=== PATIENT | female | born 1970 | race Caucasian/White ===

== ENCOUNTER → 2020-11-12 14:29 | Outpatient (BNVA) | payer SELFPAY | PROVIDERS: Family Provider Physician Assistant Medical; Visit Provider Nurse Practitioner | DX: J02.9 Acute pharyngitis, unspecified (principal); B08.4 Enteroviral vesicular stomatitis with exanthem | CPT/HCPCS: 87071; 87880 ==

== ENCOUNTER → 2023-06-20 09:35 | Outpatient (BNVA) | payer MEDICAID, SELFPAY | PROVIDERS: Family Provider Physician Assistant Medical; PCP Family Medicine; Visit Provider Podiatrist Foot & Ankle Surgery | DX: G57.61 Lesion of plantar nerve, right lower limb | CPT/HCPCS: 73630 ==

== ENCOUNTER 2023-07-23 11:08 | Outpatient (CLI) | payer MEDICAID, SELFPAY ==
--- NOTE | 2023-07-23 11:45 | MR_ITS ---
WS: [id number] EXAMINATION: MR foot RT wo con* [id number] ORDER DATE: 07/23/2023 12:15 PM COMPARISON: None. HISTORY: Martinez's Neuroma CONTRAST: None. TECHNIQUE: Sagittal T1, sagittal STIR, coronal PD, coronal T2, axial T1, axial T2, and axial PD imagi ng with fat saturation technique. FINDINGS: Palpable marker overlying the dorsal foot between the third and fourth metatarsal heads. Ti ny suspected Martinez's neuroma in the area of palpable concern between the third and fourth metatarsal heads. Small amount of edema in this location. Suspected Martinez's neuroma measures 4 mm. Normal bone marrow signal. No acute fractures. Normal metatarsals. Normal MTP joints. Phalanges appe ar normal. Normal a tarsal bones. Normal TMT joints. IMPRESSION: Tiny 4 mm suspected Martinez's neuroma in the area of palpable concern between the third and fourth met atarsal heads
== END 2023-07-23 11:09 | disposition home or self-care (01) ==
LOC: RAD 11:08
PROVIDERS: Family Provider Physician Assistant Medical; PCP Family Medicine; Visit Provider Podiatrist Foot & Ankle Surgery
DX: G57.61 Lesion of plantar nerve, right lower limb (principal)
CPT/HCPCS: 73718

== ENCOUNTER 2023-09-03 05:49 | Day surgery (SDC) | payer MEDICAID, SELFPAY ==
[2023-09-03 06:07] VITALS: BP 140/104; PULSE 88; RESP 17; TEMP 36.3; O2SAT 98; BMI 30.9
[2023-09-03] MEDS: sodium chloride 0.9% 1,000 ML 30 ML IV (06:28)
[2023-09-03] MEDS: gabapentin 300 mg Capsule PO (06:29)
[2023-09-03] MEDS: CELEcoxib 200 mg Capsule 400 MG PO (06:29)
--- NOTE | 2023-09-03 06:45 | P.HPUD_ITS ---
Surgery/Procedure H&P Update DATE OF PROCEDURE: September 03, 2023 DATE H&P PERFORMED: 08/08/23 H&P UPDATE INFORMATION: I have reviewed H&P completed within last 30 days, I have examined patient prior to procedure, No changes to prior documentation and H&P is in [facility] EMR on date indicated PREOP DIAGNOSIS: Martinez's neuroma right foot PLANNED PROCEDURE: Operation Date: 09/03/23 07:00 Proposed Procedures p Excision Martinez's Neuroma(Right) - Andrew Gonzalez DPM
[2023-09-03] MEDS: ceFAZolin 2,000 MG in sodium chloride 0.9% (plus) 50 ML 100 MG IV (06:58)
[2023-09-03] MEDS: lidocaine 1% INJ 10 mL (per mL) 20 ML XX (07:19)
[2023-09-03] MEDS: BUPivacaine 0.5% INJ 30 mL XX (07:20)
[2023-09-03 07:31] VITALS: BP 102/80; PULSE 85; RESP 16; TEMP 36.3; O2SAT 97
--- NOTE | 2023-09-03 07:36 | ANES.PREANE2 ---
Pre-Anesthetic Assessment Height/Weight: Height 1.63 m Weight 81.647 kg Temp Pulse Resp BP Pulse Ox O2 Del Method 97.4 F L 85 16 102/80 97 Room Air 09/03/23 07:31 09/03/23 07:31 09/03/23 07:31 09/03/23 07:31 09/03/23 07:31 09/03/23 07:31 Preop Diagnosis: Martinez's neuroma right foot Operation Date: 09/03/23 07:00 Proposed Procedures p Excision Martinez's Neuroma(Right) - Andrew Gonzalez DPM Familial anesthetic complications: none Was Beta Jacky taken within 24 hours: N/A Was Clonidine taken within 24 hours: N/A Last intake: Intake Last Liquid Date 09/02/23 Last Liquid Time 19:00 Last Solid Date 09/02/23 Last Solid Time 19:00 Social Tobacco and No alcohol Exam alert, oriented x 3 and regular rate & rhythm Airway Submandibular: within normal limits Cervical ROM: within normal limits Mallampati: Class II Dentition: full Pulmonary Chronic Obstructive Pulmonary Disease GI Gastroesophageal Reflux Disease Metabolic Morbid Obesity Neuropsych Anxiety and Depression Anesthetic Plan ASA status: 2 Anesthesia: MAC Medications/Allergies Home Medications Medication Instructions Recorded Confirmed Last Taken Type cholecalciferol (vitamin D3) 1,250 50,000 unit PO DAILY 09/02/23 09/02/23 08/28/23 History mcg (50,000 unit) capsule famotidine 40 mg tablet 40 mg PO DAILY 09/02/23 09/03/23 09/03/23 05:00 History tramadol 50 mg tablet 50 mg PO Q6H PRN pain #20 tabs 09/03/23 Unknown Rx Allergies Allergy/AdvReac Type Severity Reaction Status Date / Time bupropion [From Wellbutrin] Allergy ALGY-Rash Verified 09/03/23 06:04 hydromorphone [From Dilaudid] Allergy ADR-Drowsy Verified 09/02/23 12:36 nalbuphine [From Nubain] Allergy Unknown Verified 09/02/23 12:36 nitrofurantoin Allergy ALGY-Rash Verified 08/08/23 09:09 [From Macrobid] prochlorperazine Allergy ADR-Anxiety Verified 08/08/23 09:09 [From Compazine] Current Medications Generic Name Dose Route Start Last Admin Trade Name Freq PRN Reason Stop Dose Admin Sodium Chloride 1,000 mls @ 30 mls/hr 09/03/23 06:00 09/03/23 06:28 Sodium Chloride 0.9% IV 09/04/23 05:59 30 mls/hr .Q24H YUE Administration PFSH Anesthesia Social History Smoking and tobacco/nicotine status: current every day tobacco/nicotine user Data Anesthesia Cardiac Studies: No Data to Display
--- NOTE | 2023-09-03 07:38 | P.BOP_ITS ---
Date of procedure: 09/03/2023 Surgeon name: Wesley CruzPIrene Computer Network Specialist(s) name(s): Alejandro Procedure(s) performed: Right foot third interspace neuroma excision Description of findings: Neuroma removed from right foot third interspace Estimated blood loss: 5 cc Tourniquet time: 15 minutes Specimen(s) removed: Neuroma right foot third interspace Post-operative diagnosis: Martinez's neuroma right foot
--- NOTE | 2023-09-03 07:39 | PM.OP ---
Operative Report Date of procedure: September 03, 2023 Pre-op diagnosis: Right foot third interspace neuroma Post-op diagnosis: Same Post-op findings: Neuroma right foot third interspace Procedure done: Excision neuroma right foot third interspace CPT 27677 Pathology: Soft tissue mass from right foot third interspace resembling neuroma was sent to pathology Surgeon: Andrew Gonzalez DPM Liquefaction Plant Operator: Alejandro Estimated blood loss: 5 cc 15 minutes Complications: None Procedure: Patient is a 52-year-old female that has a history of right foot third interspace neuroma. The patient has had the aforementioned chief complaint for some time. Conservative treatment measures have been attempted and the patient has opted for surgical intervention at this time. A lengthy discussion regarding the procedure, including risks and complications has been had with the patient and is noted in the recent clinic note. Written and verbal consent have been obtained. All patient questions have been answered to the patient?s satisfaction. No written or verbal guarantees have been given or implied. The patient has been NPO since midnight. The history has been reviewed and the history and physical is current. The signed consent was confirmed and placed in the patient chart. Patient imaging has been reviewed and is consistent with the diagnosis. Under mild sedation, the patient was brought into the operating room and placed on the table in the supine position. IV antibiotics were given by the anesthesia team as preoperative surgical prophylaxis. IV sedation was then performed by the anesthesiateam. A local field block was performed using 0.5% Marcaine plain. A pneumatic tourniquet was then placed about the right ankle. The operative extremity was then prepped and draped in the usual fashion. The extremity was then elevated and exsanguinated before the tourniquet was inflated to 250 mmHg. After inflation, the following procedure was then performed. Attention was directed to the right foot where a 4 cm incision was made over the right foot third intermetatarsal space. Blunt dissection was carried down through subcutaneous and superficial fascia using a hemostat. Dissection was carried out to expose the soft tissue mass of the right foot third intermetatarsal space consistent with neuroma. This was isolated and was transected proximally using tenotomy scissors. It was then dissected distally into its respective medial and lateral branches before being resected and passed from the operative field. It was noted to be approximately a centimeter in length and 0.2 cm in width, yellow and glistening no evidence of malignancies. No further soft tissue mass remained in the third intermetatarsal space. Site was irrigated with copious amounts of sterile saline before attention was directed to closure. Skin was closed with 4-0 nylon in horizontal mattress fashion. The tourniquet was let down and good hyperemic response was noted to all digits of the right foot. Incision was dressed with Xeroform, 4 x 4 gauze, Kerlix, Stefano. The patient tolerated the procedure and anesthesia well and without complication. The patient was transported from the operating room to the recovery room with vital signs stable and vascular status intact to all digits of the right foot. The patient was given both written and verbal instructions to remain weightbearing as tolerated in postop shoe to the operative extremity, to keep dressings/splint clean, dry and intact and to take pain medication as directed. The patient will follow-up in the outpatient setting at their scheduled appointment. The patient was discharged with my personal number and was instructed to call if any questions or issues should arise. They were discharged home once anesthesia criteria was met.
[2023-09-03 07:40] VITALS: BP 122/85; PULSE 83; RESP 16; O2SAT 96
[2023-09-03 07:45] VITALS: BP 118/84; PULSE 79; RESP 16; O2SAT 96
[2023-09-03 07:52] VITALS: BP 128/98; PULSE 92; RESP 17; TEMP 36.3; O2SAT 96
[2023-09-03] MEDS: cetylpyridinium Lozenge 1 EACH MUCOUS MEM (08:28)
--- NOTE | 2023-09-03 13:38 | ANE.PACU2 ---
Inpatient post-anesthesia follow up: Airway intact: Yes Vital signs: Temperature 97.4 F Pulse Rate 92 Respiratory Rate 17 Blood Pressure 128/98 Pulse Oximetry 96 Oxygen Delivery Me thod Room Air Oxygen Flow Rate Fraction of Inspir ed Oxygen Hydration adequate: Yes Nausea and vomiting: No Pain level: 1 Mental status: Baseline
== END 2023-09-03 09:04 | disposition home or self-care (01) ==
PROVIDERS: PCP Family Medicine; Visit Provider Podiatrist Foot & Ankle Surgery
PROC: (CPT 28080; principal; 2023-09-03 07:00)
DX: G57.61 Lesion of plantar nerve, right lower limb (principal); J44.9 Chronic obstructive pulmonary disease, unspecified; K21.9 Gastro-esophageal reflux disease without esophagitis; E66.01 Morbid (severe) obesity due to excess calories; Z68.30 Body mass index [BMI] 30.0-30.9, adult; F17.200 Nicotine dependence, unspecified, uncomplicated
CPT/HCPCS: 28080; 88304; J0690; J2250; J2704; J3010; J3490; J7030

== ENCOUNTER 2023-11-28 16:23 | Observation (INO) | payer MEDICAID, SELFPAY ==
--- NOTE | 2023-11-28 16:27 | XRR_ITS ---
PROCEDURE INFORMATION: Exam: XR Right Foot Exam date and time: 11/28/2023 4:58 PM Age: 53 years old Clinical indication: Pain; Right; Patient HX: Prior surgery on foot; Blood vessel was burst and has been having issues since then. Surgwery >6months TECHNIQUE: Imaging protocol: Radiologic exam of the right foot. Views: 1 or 2 views. COMPARISON: MR foot RT wo con* [id number] 07/23/2023 12:26 PM FINDINGS: Bones/joints: Normal. Soft tissues: Normal. XR/XR foot RT 2V [id number] IMPRESSION: No acute findings.
[2023-11-28 16:32] VITALS: BP 128/82; PULSE 93; RESP 16; TEMP 36.7; O2SAT 97; BMI 31.7
[2023-11-28 17:41] LABS: Basophils # 0.1 10^3/uL (0.0-0.1); Basophils % 0.5 %; Eosinophils # 0.2 10^3/uL (0.0-0.8); Eosinophils % 1.2 %; Hematocrit 41.5 % (36-47); Lymphocytes # 5.2 10^3/uL (0.8-4.8); Lymphocytes % 37.8 %; Mean Corpuscular HGB Conc 32.5 g/dL (30-55); Mean Corpuscular Hemoglobin 28.8 pg (27-33); Mean Corpuscular Volume 88.7 fl (85-98); Mean Platelet Volume 8.9 fL (7.4-10.4); Monocytes # 0.8 10^3/uL (0.2-0.9); Monocytes % 6.1 %; Neutrophils # 7.37 10^3/uL (1.8-7.7); Neutrophils % 54.2 %; Nucleated Red Blood Cells % 0 %; Platelet Count 310 10^3/cmm (157-399); Red Blood Count 4.68 10^6/uL (3.85-5.65); Red Cell Distribution Width 13.2 % (12.1-15.1); White Blood Count 13.61 10^3/uL (3.29-11.43)
[2023-11-28 18:00] LABS: Lactic Sepsis W/Reflex 0.8 mmol/L (0.5-2.2)
[2023-11-28 18:01] LABS: Blood Urea Nitrogen 12 mg/dL (6-20); Calcium 8.9 mg/dL (8.5-10.5); Carbon Dioxide 24 mmol/L (22-29); Chloride 104 mmol/L (98-107); Creatinine Clr Calc Pharmacy 97.4056; Glomerular Filtration Rate 87.5 mL/min (90-130); Glucose 109 mg/dL (65-115); Osmolality Calculated 290 mOsm/kg (285-295); Sodium 140 mmol/L (136-145)
[2023-11-28 18:04] VITALS: PULSE 82; RESP 18; O2SAT 98
[2023-11-28 18:08] LABS: Procalcitonin 0.03 ng/mL (0-0.5)
[2023-11-28] MEDS: sodium chloride 0.9% 1,000 ML 999 ML IV (18:14)
[2023-11-28] MEDS: ciprofloxacin 400 MG/200 ML PREMIX 200 MG IV (18:14)
[2023-11-28] MEDS: ondansetron 2 mg/ML SDV 2 mL 4 MG IVP (18:16)
[2023-11-28] MEDS: morphine 4 mg/mL SDV 1 mL IVP ×2 (18:16→22:43)
[2023-11-28 22:43] VITALS: RESP 18
[2023-11-28] MEDS: famotidine 20 mg/2 mL INJ IVP (22:43)
--- NOTE | 2023-11-28 23:47 | CTR_ITS ---
PROCEDURE INFORMATION: Exam: CT Right Lower Extremity With Contrast, Foot Exam date and time: 11/29/2023 1:54 AM Age: 53 years old Clinical indication: Pain; Swelling, leg or foot; Right; Prior surgery; Surgery date: 6+ months; Surgery type: Patel's neuroma excision. Multiple debridements. Patient HX: Diffuse swelling and redness to fore and midfoot. History of patel's neuroma. ; Additional info: Swelling, erythema, history of debridment for patel neuroma TECHNIQUE: Imaging protocol: CT of the right lower extremity with intravenous contrast was performed. Exam focused on the foot. Radiation optimization: All CT scans at this facility use at least one of these dose optimization techniques: automated exposure control; mA and/or kV adjustment per patient size (includes targeted exams where dose is matched to clinical indication); or iterative reconstruction. Contrast material: OMNI 350; Contrast volume: 100 ml; Contrast route: INTRAVENOUS (IV); COMPARISON: MR foot RT wo con* [id number] 07/23/2023 12:26 PM RADIATION DOSE METRICS: Total DLP (mGy-cm): 373.99 FINDINGS: Bones/joints: No acute findings. Soft tissues: Diffuse soft tissue swelling and edema of the midfoot without focal fluid collection. Subcutaneous reticulation and skin thickening about the plantar aspect of the metatarsal head, no focal fluid collection. CT/CT foot RT w con [id number] IMPRESSION: Midfoot and plantar forefoot soft tissue swelling and edema without focal fluid collection. No erosive changes of the bones to suggest aggressive osseous pathology.
--- NOTE | 2023-11-28 23:50 | P.HP_ITS ---
Providers/Chief Complaint 2 Primary Care Provider: Gomez Jacobson Chief Complaint: right foot pain, swollen, redness History of Present Illness Yazmin Rubio is a 53 year old female with history of Martinez neuroma excision August 2013, with subsequent dehiscence of wound of right foot, status post excisional wound debridement, last debridement was 11/26/2023, she presents to [facility] as she has been developing right foot swelling erythema, warmth, tenderness is extending from surgical site, no fevers, no chills, no cough, no history of diabetes Review of Systems 2 Const: Denies: fever(s) or chills Medications/Allergies Home Medications Medication Instructions Recorded Confirmed Last Taken Type cholecalciferol (vitamin D3) 1,250 50,000 unit PO DAILY 09/02/23 11/26/23 08/28/23 History mcg (50,000 unit) capsule famotidine 40 mg tablet 40 mg PO DAILY 09/02/23 11/26/23 09/03/23 05:00 History tramadol 50 mg tablet 50 mg PO Q6H PRN pain #20 tabs 09/03/23 11/26/23 Unknown Rx cephalexin 500 mg capsule 500 mg PO TID #21 caps 09/17/23 11/26/23 Unknown Rx Allergies Allergy/AdvReac Type Severity Reaction Status Date / Time bupropion [From Wellbutrin] Allergy ALGY-Rash Verified 11/26/23 14:09 hydromorphone [From Dilaudid] Allergy ADR-Drowsy Verified 11/26/23 14:09 nalbuphine [From Nubain] Allergy Unknown Verified 11/26/23 14:09 nitrofurantoin Allergy ALGY-Rash Verified 11/26/23 14:09 [From Macrobid] prochlorperazine Allergy ADR-Anxiety Verified 11/26/23 14:09 [From Compazine] PFSH Acute 2 PFSH: Medical History (Updated 11/28/23 @ 23:55 by Fazal Rendon MD) Dehiscence of wound of skin Surgical History (Updated 11/28/23 @ 23:52 by Fazal Rendon MD) S/P excision of Martinez's neuroma Social History (Updated 11/28/23 @ 23:53 by Fazal Rendon MD) Smoking and tobacco/nicotine status: current every day tobacco/nicotine user Alcohol intake: never Substance/Drug Use: never Vitals/I&O/Wt Last Vital Signs Temp 98.1 F 11/28/23 16:32 Pulse 82 11/28/23 18:04 Resp 18 11/28/23 22:43 BP 128/82 11/28/23 16:32 Pulse Ox 98 11/28/23 18:04 O2 Del Method Room Air 11/28/23 18:04 11/28/23 11/28/23 11/29/23 14:59 22:59 06:59 Intake Total 1200 / 1200 Balance 1200 / 1200 Weight last 48 hrs Weight 83.915 kg Physical Exam 2 Const: COMMON NORMALS: no acute distress and patient oriented x3 HENMT: COMMON NORMALS: normocephalic HEAD & SCALP: normocephalic Neck/C-Spine: COMMON NORMALS: no JVD Resp: COMMON NORMALS: normal respiratory effort, No retractions, No use of accessory muscles and clear to auscultation bilaterally AUSCULTATION: clear to auscultation bilaterally Cardio: COMMON NORMALS: regular rate, regular rhythm, S1 normal heart sound present and S2 normal heart sound present RATE: regular rate RHYTHM: r egular rhythm HEART SOUNDS: S1 normal heart sound present and S2 normal heart sound present GI: COMMON NORMALS: Normal to inspection, nondistended, normoactive bowel sounds present, Soft to palpation and non-tender Extremity: COMMON NORMALS: no calf tenderness and no pedal edema Neuro: COMMON NORMALS: patient oriented x3, CN's II-XII intact bilaterally and moves all extremities Psych: COMMON NORMALS: mental status grossly normal Skin: OTHER: Right foot, erythema, swelling, warmth, tenderness extending from excision site, to the hindfoot, primarily in the dorsal aspect of the foot, pustular drainage from dehiscence site Data 11/28/23 17:32 11/28/23 17:32 Micro: Microbiology 11/28/23 19:18 Blood Culture - Preliminary Blood SPECIMEN COLLECTED 11/28/23 19:15 Blood Culture - Preliminary Blood SPECIMEN COLLECTED A&P Assessment and plan (1) Dehiscence of wound of skin: (2) Surgical site infection: (3) Cellulitis: (4) Martinez's neuroma of right foot: Plan Right foot cellulitis with surgical site infection, wound dehiscence, pustular drainage coming from surgical site plan ? CT of the foot with IV contrast ? IV fluids ? Vancomycin ? Cefepime ? Blood cultures ? Wound culture ? CRP, Pro-Cassius ? Dr. Gonzalez has been consulted through the ER ? N.p.o. midnight ? Possible surgical intervention tomorrow morning ? Full code ? Lovenox for DVT prophylaxis Attestations 2 Medical Necessity Statement*: Patient requires hospitalization, inpatient, greater than 2 midnights, for surgical site infection, cellulitis, right foot Diagnoses Dehiscence of wound of skin T81.30XA Surgical site infection T81.49XA Cellulitis L03.90 Martinez's neuroma of right foot G57.61
[2023-11-28 23:56] LABS: Erythrocyte Sedimentation Rate 21 mm/hr (0-15)
[2023-11-29] VITALS (10 sets, daily range): BP systolic 92–119; BP diastolic 56–77; PULSE 72–90; RESP 16–19; TEMP 36.2–36.7; O2SAT 95–97; BMI 31.7
--- NOTE | 2023-11-29 00:03 | W.ED.WOUNDLC ---
HPI - Wound/Laceration General: Chief Complaint: Wound/Laceration Stated Complaint: right foot pain, swollen, redness Time Seen by Provider: 11/28/23 17:29 Source: patient and family Mode of arrival: ambulatory Limitations: no limitations History of Present Illness: Had debridement done for the third time on the right foot on Friday. Then today suddenly had foot pain and swelling and redness. Some chills no known fever. Severe pain in the foot especially with walking. Had some nerve pain after the procedure that got better on . No nerve pain today. Just aching and soreness all over. Review of Systems General: Reports: 10 or more systems reviewed and unremarkable except in HPI and below PFSH ED PFSH: Medical History Dehiscence of wound of skin Surgical History S/P excision of Martinez's neuroma Social History Smoking and tobacco/nicotine status: current every day tobacco/nicotine user Alcohol intake: never Substance/Drug Use: never Physical Exam Const: COMMON NORMALS: no acute distress, average body habitus, patient oriented x3, healthy appearing, alert and well nourished GENERAL APPEARANCE: well kempt and well developed HENMT: COMMON NORMALS: normocephalic, atraumatic, external ears normal and moist oral mucous membranes HEAD & SCALP: normocephalic and atraumatic EXTERNAL EAR: Yes external ears normal Eye: COMMON NORMALS: Equal, round and reactive pupils present, EOMs intact bilaterally and conjunctivae normal CONJUNCTIVA: Yes conjunctivae normal PUPIL: Yes Equal, round and reactive pupils present Neck/C-Spine: COMMON NORMALS: full ROM, no lymphadenopathy and supple Chest: CHEST: Yes Symmetrical chest wall rise and No Surgical scars present (Chest) Resp: COMMON NORMALS: normal respiratory effort, No retractions, No use of accessory muscles and clear to auscultation bilaterally AUSCULTATION: clear to auscultation bilaterally Cardio: COMMON NORMALS: regular rate, regular rhythm, S1 normal heart sound present, S2 normal heart sound present, No gallops present (Cardio), No clicks present (Cardio), No murmurs present (Cardio) and No rub (Cardio) RATE: regular rate RHYTHM: regular rhythm HEART SOUNDS: S1 normal heart sound present, S2 normal heart sound present and no murmurs PERIPHERAL PULSES: other (Radial pulses 2+ and symmetric) GI: COMMON NORMALS: Soft to palpation, non-tender and no masses INSPECTION: No abdominal distension PALPATION: Yes Soft to palpation, No Guarding due to palpation present (GI) and No Rebound tenderness present : COMMON NORMALS: Yes no CVA tenderness BLADDER/KIDNEY EXAM: Yes no CVA tenderness Back/Pelvis: COMMON NORMALS: no CVA tenderness Extremity: COMMON NORMALS: normal to inspection, full ROM, capillary refill normal and no clubbing, cyanosis or edema EXTREMITY IMAGE (FRONT): 1. Wound on right foot 2. Signs of cellulitis to right foot both dorsal and plantar Neuro: COMMON NORMALS: patient oriented x3 SENSORIUM/ORIENTATION: Yes alert Psych: APPEARANCE: Yes well kempt Skin: COMMON NORMALS: no rashes or lesions noted, no wounds, turgor normal and no jaundice GENERAL SKIN EXAM: no rashes or lesions noted and turgor normal Course Vital Signs: Vital signs: Vital Signs Temperature 98.1 F 11/28/23 16:32 Pulse Rate 82 11/28/23 18:04 Respiratory Rate 18 11/28/23 22:43 Blood Pressure 128/82 11/28/23 16:32 Pulse Oximetry 98 11/28/23 18:04 Oxygen Delivery Me thod Room Air 11/28/23 18:04 MDM - Wound/Laceration Medical Decision Making X-ray personally viewed a significant amount, labs show leukocytosis. Discussed with patient failure of outpatient therapies and given risk and will place patient on IV antibiotics and admit. Consult to hospitalist and Dr. Gonzalez. Will have patient seen in the morning by vascular technologist sonographer. Differential Diagnosis Likely abscess (Cellulitis, deep space infection) Medical Records I reviewed the patient's medical records. Lab Data I reviewed the patient's lab results. 11/28/23 17:32 11/28/23 17:32 Radiology Impressions Foot X-Ray 11/28/23 16:27 IMPRESSION: No acute findings. Laboratory Results WBC 13.61 10^3/uL (3.29-11.43) H 11/28/23 17:32 RBC 4.68 10^6/uL (3.85-5.65) 11/28/23 17:32 Hgb 13.50 g/dL (11.27-16.99) 11/28/23 17:32 Hct 41.5 % (36-47) 11/28/23 17:32 MCV 88.7 fl (85-98) 11/28/23 17:32 MCH 28.8 pg (27-33) 11/28/23 17: MCHC 32.5 g/dL (30-55) 11/28/23 17:32 RDW 13.2 % (12.1-15.1) 11/28/23 17: Plt Count 310 10^3/cmm (157-399) 11/28/23 17:32 MPV 8.9 fL (7.4-10.4) 11/28/23 17:32 Neut % (Auto) 54.2 % 11/28/23 17:32 Lymph % (Auto) 37.8 % 11/28/23 17:32 [place] % (Auto) 6.1 % 11/28/23 17:32 Eos % (Auto) 1.2 % 11/28/23 17:32 Baso % (Auto) 0.5 % 11/28/23 17: Neut # (Auto) 7.37 10^3/uL (1.8-7.7) 11/28/23 17:32 Lymph # (Auto) 5.2 10^3/uL (0.8-4.8) H 11/28/23 17:32 [place] # (Auto) 0.8 10^3/uL (0.2-0.9) 11/28/23 17:32 Eos # (Auto) 0.2 10^3/uL (0.0-0.8) 11/28/23 17:32 Baso # (Auto) 0.1 10^3/uL (0.0-0.1) 11/28/23 17: Nucleated RBC % (auto) 0 % 11/28/23 17: Nucleated RBCs # 0.0 /100WBC 11/28/23 17:32 ESR 21 mm/hr (0-15) H 11/28/23 17:32 Sodium 140 mmol/L (136-145) 11/28/23 17:32 Potassium 4.0 mmol/L (3.5-5.1) 11/28/23 17:32 Chloride 104 mmol/L (98-107) 11/28/23 17:32 Carbon Dioxide 24 mmol/L (22-29) 11/28/23 17:32 Anion Gap 16.0 (5-19) 11/28/23 17:32 BUN 12 mg/dL (6-20) 11/28/23 17:32 Creatinine 0.7 mg/dL (0.5-0.9) 11/28/23 17:32 GFR Calculation 87.5 mL/min (90-130) L 11/28/23 17:32 Glucose 109 mg/dL (65-115) 11/28/23 17:32 Calculated Osmolality 290 mOsm/kg (285-295) 11/28/23 17:32 Lactic Acid 0.8 mmol/L (0.5-2.2) 11/28/23 17:32 Calcium 8.9 mg/dL (8.5-10.5) 11/28/23 17:32 Procalcitonin 0.03 ng/mL (0-0.5) 11/28/23 17:32 All radiology interpretation(s) finalized by discharge ED provider radiology interpretation(s): No acute findings on x-ray of the right foot per my interpretation Discharge Plan Discharge Patient Disposition: Admitted As Inpatient Admit Provider: Fazal Rendon Clinical Impression: Cellulitis of foot, right, Open wound of right foot, Failure of outpatient treatment Condition: Stable Coding Level of Care Code ED Environmental Protection Forester for Danial Momin
[2023-11-29] MEDS: vancomycin 1,250 MG/250 ML PIGGYBACK 250 MG IV (00:39)
[2023-11-29] MEDS: diphenhydrAMINE 50 mg/mL SDV 1mL IVP (01:45)
[2023-11-29] MEDS: iohexol 350 mg/mL 500 mL Btl (per mL) IV (01:59)
[2023-11-29] MEDS: pantoprazole 40 mg SDV IVP (03:00)
[2023-11-29] MEDS: sodium chloride 0.9% 1,000 ML 75 ML IV (03:00)
--- NOTE | 2023-11-29 03:08 | PC.NURSE ---
Lab at bedside to draw blood, per doctor's orders. Lead Mason Tender stuck patient twice without success. Patient stated she did not want anyone else to stick her. Patient has also requested she not take Lovenox for DVT prophylaxis. Physician notified.
[2023-11-29 03:35] LABS: Estmated Average Glucose 105; Hemoglobin A1C 5.3 % (4.0-6.0)
[2023-11-29 03:36] LABS: Chol HDL Ratio 5.55 mg/dL (0.0-4.40); Cholesterol 272 mg/dL (0-200); HDL Cholesterol 49 mg/dL (60-100); LDL Cholesterol Calculated 189 mg/dL (50-129); LDL HDL Ratio 3.86 RATIO (0.00-3.22); Thyroid Stimulating Hormone 1.91 uIU/mL (0.27-4.20); Triglycerides 169 mg/dL (0-150)
--- NOTE | 2023-11-29 08:05 | P.CONIM_ITS ---
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 Patient has a history of tobacco use. I discussed with her that this is likely contributing to the nonhealing status of her ulceration. She presented to the emergency department yesterday 11/28/2023 for evaluation as her foot was red, hot and swollen. Patient also endorsed pain. She denies any constitutional symptoms. Podiatry was consulted to provide further recommendations and evaluation. Review of Systems 2 General: Reports: 10 or more systems reviewed and unremarkable except in HPI and below Const: Denies: fever(s), chills, body aches or change in appetite Eyes: Denies: change in vision or blurry vision Card: Denies: chest pain, palpitations or irregular heart rhythm Resp: Denies: dyspnea GI: Denies: abdominal pain, nausea, vomiting or diarrhea Musc: Reports: joint stiffness Skin/Breast: Reports: non-healing lesions and lesions Neuro: Reports: numbness in extremities Medications/Allergies Home Medications Medication Instructions Recorded Confirmed Last Taken Type cholecalciferol (vitamin D3) 1,250 50,000 unit PO DIRECTED 09/02/23 11/29/23 11/22/23 History mcg (50,000 unit) capsule famotidine 40 mg tablet 40 mg PO DAILY 09/02/23 11/29/23 11/28/23 History tramadol 50 mg tablet 50 mg PO Q6H PRN pain #20 tabs 09/03/23 11/29/23 11/28/23 Rx cephalexin 500 mg capsule 500 mg PO TID #21 caps 09/17/23 11/29/23 Unknown Rx Allergies Allergy/AdvReac Type Severity Reaction Status Date / Time bupropion [From Wellbutrin] Allergy ALGY-Rash Verified 11/26/23 14:09 hydromorphone [From Dilaudid] Allergy ADR-Drowsy Verified 11/26/23 14:09 nalbuphine [From Nubain] Allergy Unknown Verified 11/26/23 14:09 nitrofurantoin Allergy ALGY-Rash Verified 11/26/23 14:09 [From Macrobid] prochlorperazine Allergy ADR-Anxiety Verified 11/26/23 14:09 [From Compazine] Current Medications Generic Name Dose Route Start Last Admin Trade Name Freq PRN Reason Stop Dose Admin Enoxaparin Sodium 40 mg 11/29/23 02:04 11/29/23 03:12 Enoxaparin 40 Mg/0.4 Ml Syringe SUBCUT Not Given Q24H YUE Vancomycin/PEG/NADA/Lysine/Water 1,250 mg in 250 mls @ 250 mls/hr 11/29/23 00:15 11/29/23 03:01 Vancocin IV Infused Q12H YUE Infusion Sodium Chloride 1,000 mls @ 75 mls/hr 11/29/23 02:04 11/29/23 03:00 Sodium Chloride 0.9% IV 75 mls/hr .[id number] YUE Administration Pantoprazole Sodium 40 mg 11/29/23 02:04 11/29/23 03:00 Pantoprazole 40 Mg Sdv IVP 40 mg Q24H YUE Administration PFSH Acute 2 PFSH: Medical History Dehiscence of wound of skin Surgical History S/P excision of Martinez's neuroma Social History Smoking and tobacco/nicotine status: current every day tobacco/nicotine user Alcohol intake: never Substance/Drug Use: never Vitals/I&O/Wt Last Vital Signs Temp 97.1 F L 11/29/23 07:26 Pulse 72 11/29/23 07:26 Resp 17 11/29/23 07:26 BP 106/69 11/29/23 07:26 Pulse Ox 96 11/29/23 07:26 O2 Del Method Room Air 11/29/23 07:26 11/28/23 11/29/23 11/29/23 22:59 06:59 14:59 Intake Total 1200 / 1200 250 / 1450 Balance 1200 / 1200 250 / 1450 Weight last 48 hrs Weight 184 lb 2 oz Weight 185 lb Weight 185 lb Physical Exam 2 Narrative: BELOW IS A FOCUSED LOWER EXTREMITY EXAM GENERAL: A&O x 3 VASCULAR: DP/PT pulses palpable 2/4 with CFT intact, <3seconds to distal digits. Biphasic RDP on handheld doppler at bedside. DERMATOLOGICAL: Skin turgor and temperature is within normal limits. No interdigital maceration noted. Dehisced wound measures 0.6 x 0.3 x 0.2 cm. Mild serous drainage. Surrounding erythema onto the dorsum of the foot. No underlying fluctuance. No evidence of deep space abscess. MUSCULOSKELETAL: Tenderness with palpation of dehiscence site NEUROLOGICAL: Neurological sensation to the affected foot and ankle is present through L4-S1 dermatomes with no hyper/hypoesthesias, negative Tinel or Valleix's sign IMAGING: X-rays of right foot and CT scan were personally interpreted by me. No evidence of osteomyelitis. No subcutaneous emphysema. No drainable fluid collection. Data 11/28/23 17:32 11/28/23 17:32 Micro: Microbiology 11/28/23 19:18 Blood Culture - Preliminary Blood SPECIMEN COLLECTED 11/28/23 19:15 Blood Culture - Preliminary Blood SPECIMEN COLLECTED A&P Assessment and plan (1) Cellulitis of foot, right: (2) Dehiscence of wound of skin: Plan -Right foot incisional dehiscence wound with cellulitis -Labs and vitals reviewed -WBC 13.6 -ESR 21 -CRP 16 -VSS -Cultures pending -Abx Vanco/cefepime -Diet: Okay for diet -No plan for surgical intervention during this admission. Cellulitis surrounding debridement site. No drainable abscess or fluid collection. No signs of osteomyelitis. -Pain Mgmt: Per admitting physician -Weight bearing: Weightbearing as tolerated to right foot -Dressings: Adaptic, Betadine soaked gauze, dry gauze, Stefano bandage -Continue current Abx therapy -Trend labs -Discharge plan: Patient is okay to discharge home from podiatry standpoint on oral antibiotics. Recommend broad-spectrum. Clinda/Cipro combination x 10 days. Also recommend cam boot to right lower extremity to aid with ambulation on heel as forefoot is tender. Patient has scheduled follow-up in the outpatient setting with me next 12/03/2023. Patient is to keep her scheduled appointment. Discussed with patient that she should change her dressing change from wound gel daily to Betadine daily. -Podiatry will continue to round on patient daily and provide recommendations Coding Level of Care Code Acute Code for [facility] Fwd Diagnoses Cellulitis of foot, right L03.115 Dehiscence of wound of skin T81.30XA
[2023-11-29] MEDS: acetaminophen 325 mg Tablet 650 MG PO (13:33)
--- NOTE | 2023-11-29 13:36 | PC.NURSE ---
Written report received. Care assumed. Pt stated that Dr Gonzalez and Lakshmi told her the abx would be switched to oral and she could probably go home today. She has no ride until 1999, per report. Will follow up.
--- NOTE | 2023-11-29 15:04 | PM.DCS ---
Discharge Providers Date of Admission: 11/29/23 02:04 Date of Discharge: November 29, 2023 Attending Provider at Admission: Fazal Rendon MD Attending Provider at Discharge: Derrell Martins Primary Care Provider: Gomez Jacobson Diagnoses at Discharge Discharge Diagnosis (1) Cellulitis of foot, right: Status: Acute (2) Dehiscence of wound of skin: Status: Acute Reason for Visit Reason for Visit: right foot pain, swollen, redness Brief History: Yazmin Rubio is a 53 year old female with history of Martinez neuroma excision August 2013, with subsequent dehiscence of wound of right foot, status post excisional wound debridement, last debridement was 11/26/2023, she presents to [facility] as she has been developing right foot swelling erythema, warmth, tenderness is extending from surgical site, no fevers, no chills, no cough, no history of diabetes. Hospital Course Hospital Course He received ciprofloxacin and vancomycin, had additional assessment by contrast-enhanced CT of the foot which showed cellulitis, soft tissue edema without collection, without obvious osteomyelitis on the contrast-enhanced study. ESR with some mild elevation to 21. CRP 16. Blood and wound cultures have been collected, blood culture is still preliminary, so far without growth, will need follow-up. Wound culture pending as well. She was assessed by podiatry. Noted to have a small open area dorsally, please see pictures in the note, without discharge, bleeding, with cellulitis, discussed with patient and podiatry she has lost her IV access, after multiple attempts could not be reobtained, consideration discussed with her and podiatry for reobtaining IV access, continue IV antibiotics, alternatively transitioning to oral therapy at current time. She reports she is otherwise doing well, denies any worsening symptoms, and she declined additional attempts to obtain IV. Discussing with podiatry consideration of reobtaining access, based on her condition per podiatry she can discharge with oral antibiotics instead with outpatient follow-up, has an appointment on Friday for reassessment. As per recommendation she started on clindamycin, ciprofloxacin. Weightbearing as tolerated. Additionally assessed by PT for cam boot as per recommendation, but he is found needing a walker, although cam boot in current situation would be more detrimental rather than usual, as per additional discussion with podiatry he is okay to discharge home with walker alone. She knows to seek medical attention in case of any worsening local or any systemic symptoms. Discussed with her dressing changes. Please follow-up response to treatment. Symptomatically would suspect surface entry of infection at the dehiscence site, however, with temporal distance from surgery to current infection, discussed with her additional assessment with contrast MR foot for lower chance bot not entirely excluded bone infection which would require IV route and longer treatment, and may be at risk of treatment failure with current regimen with risk of worsening/invasive infection locally, distant spread, etc. She understands the reasoning and is agreeable with proceeding with these plans. Physical Exam Const: COMMON NORMALS: patient oriented x3 and alert GENERAL APPEARANCE: cooperative ORIENTATION/CONSCIOUSNESS: Yes awake HENMT: COMMON NORMALS: oropharynx normal Neck/C-Spine: COMMON NORMALS: no JVD Resp: COMMON NORMALS: normal respiratory effort and clear to auscultation bilaterally AUSCULTATION: clear to auscultation bilaterally Cardio: COMMON NORMALS: no JVD, regular rhythm, S1 normal heart sound present, S2 normal heart sound present and No murmurs present (Cardio) RHYTHM: regular rhythm HEART SOUNDS: S1 normal heart sound present and S2 normal heart sound present GI: COMMON NORMALS: Normal to inspection, nondistended, normoactive bowel sounds present, Soft to palpation and non-tender PALPATION: Yes Soft to palpation Extremity: COMMON NORMALS: no joint enlargement and no pedal edema OTHER: R foot wrapped in elastic dressing. no proximal foot/dist RLE swelling or erythema. Mild swelling of R foot visible digits, appearing perfused without mottling or cyanosis. Neuro: COMMON NORMALS: patient oriented x3 and moves all extremities SENSORIUM/ORIENTATION: Yes alert Skin: COMMON NORMALS: no rashes or lesions noted GENERAL SKIN EXAM: no rashes or lesions noted Discharge Data Studies Completed and Pending Completed Studies During Hospitalization Category Date Time Status CT foot RT w con [id number] Stat Cat Scan 11/28/23 23:47 Completed XR foot RT 2V [id number] Stat Exams 11/28/23 16:27 Completed Pending at discharge Category Date Time Status Basic Metabolic Panel Routine Lab 11/29/23 03:42 Ordered Blood Culture Stat Lab 11/28/23 19:18 Results Complete Blood Count w/Auto Routine Lab 11/29/23 03:40 Ordered Gram Stain Stat Lab 11/28/23 18:29 Results HCG Qualitative Urine. Stat Lab 11/28/23 23:53 Ordered Vancomycin Trough Timed Lab 11/30/23 11:30 Ordered Wound Culture Stat Lab 11/28/23 18:29 Results Radiology Impressions Foot X-Ray 11/28/23 16:27 IMPRESSION: No acute findings. Foot CT 11/28/23 23:47 IMPRESSION: Midfoot and plantar forefoot soft tissue swelling and edema without focal fluid collection. No erosive changes of the bones to suggest aggressive osseous pathology. Laboratory Results WBC Cancelled 11/29/23 03:23 Corrected WBC Cancelled 11/29/23 03:23 RBC Cancelled 11/29/23 03:23 Hgb Cancelled 11/29/23 03:23 Hct Cancelled 11/29/23 03:23 MCV Cancelled 11/29/23 03:23 MCH Cancelled 11/29/23 03:23 MCHC Cancelled 11/29/23 03:23 RDW Cancelled 11/29/23 03:23 Plt Count Cancelled 11/29/23 03:23 MPV Cancelled 11/29/23 03:23 Gran % Cancelled 11/29/23 03:23 Neut % (Auto) Cancelled 11/29/23 03:23 Lymph % (Auto) Cancelled 11/29/23 03:23 [place] % (Auto) Cancelled 11/29/23 03:23 Eos % (Auto) Cancelled 11/29/23 03:23 Baso % (Auto) Cancelled 11/29/23 03:23 Neut # (Auto) Cancelled 11/29/23 03:23 Lymph # (Auto) Cancelled 11/29/23 03:23 [place] # (Auto) Cancelled 11/29/23 03:23 Eos # (Auto) Cancelled 11/29/23 03:23 Baso # (Auto) Cancelled 11/29/23 03:23 Absolute Gran (auto) Cancelled 11/29/23 03:23 Nucleated RBC % (auto) Cancelled 11/29/23 03:23 Nucleated RBCs # Cancelled 11/29/23 03:23 ESR 21 mm/hr (0-15) H 11/28/23 17:32 Sodium Cancelled 11/29/23 03:23 Potassium Cancelled 11/29/23 03:23 Chloride Cancelled 11/29/23 03:23 Carbon Dioxide Cancelled 11/29/23 03:23 Anion Gap Cancelled 11/29/23 03:23 BUN Cancelled 11/29/23 03:23 Creatinine Cancelled 11/29/23 03:23 GFR Calculation Cancelled 11/29/23 03:23 Glucose Cancelled 11/29/23 03:23 Estimat Average Glucose 105 11/29/23 Unknown Hemoglobin A1c 5.3 % (4.0-6.0) 11/29/23 Unknown Calculated Osmolality Cancelled 11/29/23 03:23 Lactic Acid 0.8 mmol/L (0.5-2.2) 11/28/23 17:32 Calcium Cancelled 11/29/23 03:23 C-Reactive Protein 16.0 mg/L (0.0-4.9) H 11/28/23 17:32 Triglycerides 169 mg/dL (0-150) H 11/29/23 Unknown Cholesterol 272 mg/dL (0-200) H 11/29/23 Unknown LDL Cholesterol, Calc 189 mg/dL (50-129) H 11/29/23 Unknown HDL Cholesterol 49 mg/dL (60-100) L 11/29/23 Unknown LDL/HDL Ratio 3.86 RATIO (0.00-3.22) H 11/29/23 Unknown Cholesterol/HDL Ratio 5.55 mg/dL (0.0-4.40) H 11/29/23 Unknown Procalcitonin 0.03 ng/mL (0-0.5) 11/28/23 17:32 TSH 1.91 uIU/mL (0.27-4.20) 11/29/23 Unknown Vitals Last Vital Signs Temp 97.1 F L 11/29/23 12:00 Pulse 81 11/29/23 12:00 Resp 19 H 11/29/23 12:00 BP 92/56 11/29/23 12:00 Pulse Ox 97 11/29/23 12:00 O2 Del Method Room Air 11/29/23 12:00 Discharge Plan Discharge Patient Disposition: Home Condition: Stable Prescriptions: New clindamycin HCl 150 mg Capsule 300 mg PO TID Qty: 30 0RF ciprofloxacin HCl 500 mg Tablet 500 mg PO BID@0900,2100 Qty: 20 0RF miscellaneous medical supply Misc 1 ea miscellaneous DAILY Qty: 24 0RF Rx Instructions: Adaptic dressing Antiseptic 10 % solution 1 applic topical DAILY Qty: 473 0RF (DME) Band-Aid Gauze Pads 4 X 4 bandage See Rx Instructions .Route Qty: 100 0RF Rx Instructions: As directed (DME) elastic bandage 2 X 1.9 -yard bandage See Rx Instructions .Route Qty: 14 0RF Rx Instructions: As directed Continued cephalexin 500 mg capsule 500 mg PO TID Qty: 21 0RF famotidine 40 mg tablet 40 mg PO DAILY cholecalciferol (vitamin D3) 1,250 mcg (50,000 unit) capsule 50,000 unit PO DIRECTED tramadol 50 mg tablet 50 mg PO Q6H PRN (Reason: pain) Qty: 20 0RF Discharge Orders: Discharge Order (Routine); Ordered 11/29/23 Ordered By: Derrell Martins Other Ambulatory Orders: DME: Walker (Order) Location: None Selected Ordered By: Andrew Gonzalez MR foot RT wo/w con [id number] (Routine) Timeframe: 2 Days Facility: [facility] - Location: Radiology [facility] Ordered By: Derrell Martins Referrals: Andrew Gonzalez DPM [Physician] - 12/03/23 8:45 am Gomez Jacobson [Primary Care Provider] - 4-7 days (We have notified your physician's clinic of the need for a follow-up appointment to be scheduled. If you have not heard from them within the next 2 business days, please call them directly. We have notified your physician's clinic of the need for a follow-up appointment to be scheduled. If you have not heard from them within the next 2 business days, please call them directly. ) Patient Instructions: Ciprofloxacin (By mouth), Clindamycin (By mouth), Metronidazole (By mouth), Cellulitis (GEN), Opioid Safety Activity Restrictions/Additional Instructions: Continue antibiotic course, complete 10-day course as recommended by podiatry with ciprofloxacin, clindamycin. In case of any worsening, worsening swelling, redness, or recurrence of bothersome pain, or having chills, fever, feeling worse, return to emergency room. Similarly, in case of any drainage, any color or temperature changes in the toes, any loss of sensation, or any other concerning symptoms seek medical attention immediately. Follow-up with podiatry in office for reassessment of response to treatment of wound opening and skin infection. Also reach out to medical professional in case of developing diarrhea while on or after being on antibiotic. Dressing changes: daily dressing change with Adaptic, Betadine soaked gauze, dry gauze, wrap with elastic bandage. Continue weightbearing as tolerated. Discharge Attestations Time Spent in Discharge Care*: greater than 30 min Quality Metrics Clinical Quality Measures [ No reported AMI, CVA or VTE this stay] Coding Level of Care Code 77925 Total time (in minutes) for Discharge: 50 Diagnoses Cellulitis of foot, right L03.115 Dehiscence of wound of skin T81.30XA
[2023-11-29] MEDS: ciprofloxacin 500 mg Tablet PO ×2 (15:12→17:54)
[2023-11-29] MEDS: clindamycin 150 mg Capsule 300 MG PO ×2 (15:17→17:58)
--- NOTE | 2023-11-29 17:34 | PC.NURSE ---
Patient transportation will not be here to pick her up until 1999.
--- NOTE | 2023-11-29 17:57 | PC.NURSE ---
Discharge: Pt provided with angelight's dose of clindamycin and ciproflaxin as her Pharmacy is closed at time of discharge. Evelyn, Charge nurse aware. Follow up appts to be made discussed with pt. Pt declined to go over care notes provided.
== END 2023-11-29 17:57 | disposition home or self-care (01) ==
LOC: ER 17:29 → MEDSURG 11-29 00:03
PROVIDERS: Emergency Medicine; Admitting Provider Family Medicine; Emergency Provider Emergency Medicine; PCP Family Medicine; Visit Provider Internal Medicine
DX: L03.115 Cellulitis of right lower limb (principal); T81.30XA Disruption of wound, unspecified, initial encounter; F17.200 Nicotine dependence, unspecified, uncomplicated; T81.49XA Infection following a procedure, other surgical site, initial encounter; G57.61 Lesion of plantar nerve, right lower limb
CPT/HCPCS: 36415; 73620; 73701; 80048; 80061; 83036; 83605; 84145; 84443; 85025; 85651; 86140; 87040; 87070; 87205; 94664; 96365; 96367; 96375; 96376; 97116; 97161; 99285; C9113; G0378; J0744; J1200; J2270; J2405; J3370; J3490; J7030; Q9967

== ENCOUNTER 2023-12-12 11:16 | Outpatient (CLI) | payer MEDICAID, SELFPAY ==
--- NOTE | 2023-12-12 13:00 | USCV_ITS ---
Yazmin Rubio Age: 53 Gender: F : 1970 Exam Date: 12/12/2023 11:14 Ordering Phys: Andrew Gonzalez DPM Technologist: Exam Location: [facility] [place]_ Indication: FINDINGS Resting ROBERT of 1.1 on the right with resting TBI of 0.73 CONCLUSIONS Normal resting ROBERT and TBI on the right side, suggesting no significant arterial obstruction Dr Kyle Velasquez MD FAC (Electronically Signed) Final Date: 12 Dec 2023 23:55 S
== END 2023-12-12 11:17 | disposition home or self-care (01) ==
LOC: RAD 11:17
PROVIDERS: PCP Family Medicine; Visit Provider Podiatrist Foot & Ankle Surgery
DX: S91.301A Unspecified open wound, right foot, initial encounter (principal); X58.XXXA Exposure to other specified factors, initial encounter
CPT/HCPCS: 93922

== ENCOUNTER 2023-12-24 05:35 | Day surgery (SDC) | payer MEDICAID, SELFPAY ==
[2023-12-24] VITALS (7 sets, daily range): BP systolic 97–119; BP diastolic 74–86; PULSE 68–86; RESP 16–20; TEMP 36.1–36.4; O2SAT 96–99; BMI 30.9
[2023-12-24] MEDS: acetaminophen 1,000 MG/100 ML PIGGYBACK 400 MG IV (06:33)
[2023-12-24] MEDS: sodium chloride 0.9% 1,000 ML 30 ML IV (06:33)
[2023-12-24] MEDS: gabapentin 300 mg Capsule PO (06:33)
--- NOTE | 2023-12-24 06:48 | W.PM.OPSUD ---
Surgery/Procedure H&P Update DATE OF PROCEDURE: December 24, 2023 DATE H&P PERFORMED: 12/12/23 H&P UPDATE INFORMATION: I have reviewed H&P completed within last 30 days, I have examined patient prior to procedure, No changes to prior documentation and H&P is in [facility] EMR on date indicated PREOP DIAGNOSIS: Incisional dehiscence PLANNED PROCEDURE: Operation Date: 12/24/23 07:00 Proposed Procedures p Wound Dehiscence Repair(Right) - Andrew Gonzalez DPM
--- NOTE | 2023-12-24 06:51 | ANES.PREANE2 ---
Pre-Anesthetic Assessment Height/Weight: Height 1.63 m Weight 81.647 kg Temp Pulse Resp BP Pulse Ox O2 Del Method 97.2 F L 86 18 119/82 98 Room Air 12/24/23 06:03 12/24/23 06:03 12/24/23 06:03 12/24/23 06:03 12/24/23 06:03 12/24/23 06:02 Preop Diagnosis: Incisional dehiscence Operation Date: 12/24/23 07:00 Proposed Procedures p Wound Dehiscence Repair(Right) - Andrew Gonzalez DPM Was Beta Jacky taken within 24 hours: N/A Was Clonidine taken within 24 hours: N/A Last intake: Intake Last Liquid Date 12/23/23 Last Liquid Time 20:00 Last Solid Date 12/23/23 Last Solid Time 20:00 Social Tobacco and No alcohol Exam alert, oriented x 3, clear to auscultation bilaterally and regular rate & rhythm Airway Submandibular: within normal limits Cervical ROM: within normal limits Mallampati: Class II Dentition: full History/ROS No significant history except as noted and No significant complaints Pulmonary Sleep Apnea CV/HEM None reported None reported Hepatic None reported GI None reported Metabolic None reported Musc/skel None reported Neuropsych None reported Anesthetic Plan ASA status: 2 Anesthesia: Anesthesia Evaluation and MAC Risk of > 500 ml blood loss (7ml/kg in children): No Medications/Allergies Home Medications Medication Instructions Recorded Confirmed Last Taken Type famotidine 40 mg tablet 40 mg PO BID 09/02/23 12/23/23 12/23/23 History ascorbic acid (vitamin C) 500 mg 250 mg PO EVERY OTHER DAY 12/23/23 12/23/23 12/23/23 History tablet (Vitamin C) ferrous sulfate 325 mg (65 mg 325 mg PO EVERY OTHER DAY 12/23/23 12/23/23 12/23/23 History iron) tablet mecobalamin (vitamin B12) 1,000 2,000 mcg PO DAILY 12/23/23 12/23/23 12/23/23 History mcg chewable tablet (B12 Active) vitamin [id number] B1 1,000 0.1 ml IM DIRECTED 12/23/23 12/23/23 12/23/23 History mcg-100 mg/mL injection solution Allergies Allergy/AdvReac Type Severity Reaction Status Date / Time bupropion [From Wellbutrin] Allergy ALGY-Rash Verified 12/24/23 06:22 hydromorphone [From Dilaudid] Allergy ADR-Drowsy Verified 12/24/23 06:22 nalbuphine [From Nubain] Allergy Unknown Verified 12/24/23 06:22 nitrofurantoin Allergy ALGY-Rash Verified 12/24/23 06:22 [From Macrobid] prochlorperazine Allergy ADR-Anxiety Verified 12/24/23 06:22 [From Compazine] Current Medications Generic Name Dose Route Start Last Admin Trade Name Freq PRN Reason Stop Dose Admin Sodium Chloride 1,000 mls @ 30 mls/hr 12/24/23 06:00 12/24/23 06:33 Sodium Chloride 0.9% IV 12/25/23 05:59 30 mls/hr .Q24H YUE Administration PFSH Anesthesia Medical History Dehiscence of wound of skin Surgical History S/P excision of Martinez's neuroma Social History Smoking and tobacco/nicotine status: current every day tobacco/nicotine user Alcohol intake: never Substance/Drug Use: never Data Anesthesia Cardiac Studies: No Data to Display
[2023-12-24] MEDS: ceFAZolin 2,000 MG in sodium chloride 0.9% (plus) 50 ML 100 MG IV (06:56)
[2023-12-24] MEDS: BUPivacaine 0.5% INJ 30 mL INJECTION (07:05)
--- NOTE | 2023-12-24 07:35 | P.OP_ITS ---
Operative Report Date of procedure: December 24, 2023 Pre-op diagnosis: Right foot wound dehiscence Post-op diagnosis: Same Post-op findings: Incisional dehiscence right foot. Depth of wound extended down into the intermetatarsal space right foot. No abscess accumulation. Procedure done: Right foot delayed primary closure CPT 04367 Specimens removed/disposition: Cultures aerobic and anaerobic Surgeon: Andrew Gonzalez DPM Estimated blood loss: 1 cc 16 minutes Complications: None Findings: See above Procedure: Patient is a 53-year-old female that has a history of right foot incisional dehiscence. The patient has had the aforementioned chief complaint for some time, since her surgery earlier this year for neuroma excision.. Conservative treatment measures have been attempted including local wound care and the patient has opted for surgical intervention at this time. A lengthy discussion regarding the procedure, including risks and complications has been had with the patient and is noted in the recent clinic note. Written and verbal consent have been obtained. All patient questions have been answered to the patient?s satisfaction. No written or verbal guarantees have been given or implied. The patient has been NPO since midnight. The history has been reviewed and the history and physical is current. The signed consent was confirmed and placed in the patient chart. Patient imaging has been reviewed and is consistent with the diagnosis. Under mild sedation, the patient was brought into the operating room and placed on the table in the supine position. IV antibiotics were given by the anesthesia team as preoperative surgical prophylaxis. IV sedation was then performed by the anesthesiateam. A local field block was performed using 0.5% Marcaine plain. A pneumatic tourniquet was then placed about the right ankle. The operative extremity was then prepped and draped in the usual fashion. The extremity was then elevated and exsanguinated before the tourniquet was inflated to 250 mmHg. After inflation, the following procedure was then performed. Attention was directed to the right foot where full-thickness wound dehiscence was visualized over the third intermetatarsal space. A #15 blade was used to make an elliptical incision around the edges of the wound to remove the epiboly. After removal of the skin edges the wound was examined. It was noted to extend deep into the third intermetatarsal space. No appreciable abscess formation was visualized. Tissues appeared healthy and viable. Curette was used to perform light debridement of the wound bed. Site was then cultured with aerobic and anaerobic cultures. Sterile saline was then used for irrigation of the wound site before attention was directed to closure. Deep tissue including subcuticular closure was closed with 4-0 Vicryl followed by skin closure with 4- 0 nylon in horizontal mattress and simple interrupted fashion. The tourniquet was let down and good hyperemic response was noted to all digits of the right foot. The incision site was dressed with Xeroform, 4 x 4 gauze, Kerlix, Stefano. The patient tolerated the procedure and anesthesia well and without complication. The patient was transported from the operating room to the recovery room with vital signs stable and vascular status intact to all digits of the right foot. The patient was given both written and verbal instructions to remain weightbearing as tolerated in postop shoe to the operative extremity, to keep dressings/splint clean, dry and intact and to take pain medication as directed. The patient will follow-up in the outpatient setting at their [facility] appointment. The patient was discharged with my personal number and was instructed to call if any questions or issues should arise. They were discharged home once anesthesia criteria was met.
--- NOTE | 2023-12-24 08:20 | ANE.PACU2 ---
Inpatient post-anesthesia follow up: Airway intact: Yes Vital signs: Temperature 97.5 F Pulse Rate 68 Respiratory Rate 18 Blood Pressure 114/85 Pulse Oximetry 97 Oxygen Delivery Me thod Room Air Oxygen Flow Rate Fraction of Inspir ed Oxygen Hydration adequate: Yes Nausea and vomiting: No Pain level: 1 Mental status: Baseline
--- NOTE | 2023-12-24 08:33 | SUR.PHASEII ---
verbal discharge given by mira irizarry rn
== END 2023-12-24 08:20 | disposition home or self-care (01) ==
PROVIDERS: PCP Family Medicine; Visit Provider Podiatrist Foot & Ankle Surgery
PROC: (CPT 13160; principal; 2023-12-24 07:00)
DX: T81.30XA Disruption of wound, unspecified, initial encounter (principal); S91.301A Unspecified open wound, right foot, initial encounter; X58.XXXA Exposure to other specified factors, initial encounter; G47.30 Sleep apnea, unspecified; F17.200 Nicotine dependence, unspecified, uncomplicated
CPT/HCPCS: 13160; 87070; 87075; 87205; J0131; J0690; J2250; J2704; J3010; J3490; J7030

== ENCOUNTER 2024-05-21 13:40 | Outpatient (CLI) | payer MEDICAID, SELFPAY ==
--- NOTE | 2024-05-21 13:44 | MRR_ITS ---
PROCEDURE INFORMATION: Exam: MR Right Lower Extremity Other Than Joint Without Contrast; Foot Exam date and time: 05/21/2024 2:02 PM Age: 53 years old Clinical indication: Foot; Right; Prior surgery; Surgery date: 6+ months; Surgery type: Mortons neuroma excision; Patient HX: Pain at base of toes, HX of multiple surgeries in that area, mortons neuromas; Additional info: R/O stump neuroma right foot TECHNIQUE: Imaging protocol: Magnetic resonance imaging of the right lower extremity without contrast. Exam focused on the foot. COMPARISON: CT foot RT w con [id number] 11/29/2023 1:54 AM FINDINGS: There is a teardrop soft tissue density within the 3rd web space interposed between the distal heads of the 3rd and 4th metatarsals measuring approximately 14 x 4 mm demonstrating peripheral fluid like signal characteristics it more central intermediate signal. Although findings may in part be secondary to postsurgical scarring possibility of recurrent or residual Martinez's neuroma cannot be ruled out. Remainder of the web spaces are unremarkable. There is mild superficial soft tissue changes along the dorsum of the forefoot that may be postsurgical in nature. Capsular ligaments are unremarkable. Flexor and extensor tendons are intact. Visualized osseous structures and joint surfaces are unremarkable. No fracture or malalignment. MR/MR foot RT wo con* [id number] IMPRESSION: Teardrop soft tissue density within the 3rd web space that may part be due to postsurgical changes with residual recurrent Martinez's neuroma to be excluded.
== END 2024-05-21 13:41 | disposition home or self-care (01) ==
LOC: RAD 13:41
PROVIDERS: PCP Family Medicine; Visit Provider Podiatrist Foot & Ankle Surgery
DX: G57.61 Lesion of plantar nerve, right lower limb (principal)
CPT/HCPCS: 73718